=== PATIENT | female | born 1970 | race Caucasian/White ===

== ENCOUNTER → 2020-08-25 | Outpatient (CLI) | payer OTHER ==
[~2020-08-25] MED LIST: CITA40TA12 PO; DEXT10TA23 PO; HYDR-2145 PO; NIFE20CA PO
== END ==
LOC: LAB 09:58
PROVIDERS: ATTEND Nurse Anesthetist, Certified Registered
DX: Z01.812 Encounter for preprocedural laboratory examination (principal); Z13.9 Encounter for screening, unspecified; Z20.822 Contact with and (suspected) exposure to COVID-19
CPT/HCPCS: U0003; U0005

== ENCOUNTER → 2020-08-29 | Day surgery (SDC) | payer OTHER ==
[~2020-08-29] MED LIST changes: +IPRATRPIUM/ALBUTEROL 0.5/2.5MG 3 ML NEBU. NEB PRN; +IV RINGERS SOLUTION,LACTATED 1,000 ML IV SCH; +LIDOCAINE 2% PF 5 ML VIAL. ONE; +MIDAZOLAM HCL PF 2 MG/2 ML VIAL. IV ONE; +PROPOFOL 10,000 MCG/ML (20ML) VIAL IV ONE
[2020-08-29 08:51] VITALS: BP 106/72
== END | disposition home or self-care (01) ==
LOC: SURG 07:30
PROVIDERS: ATTEND Emergency Medicine
DX: Z12.11 Encounter for screening for malignant neoplasm of colon (principal); K57.30 Diverticulosis of large intestine without perforation or abscess without bleeding; K63.89 Other specified diseases of intestine; Z88.8 Allergy status to other drugs, medicaments and biological substances; Z79.899 Other long term (current) drug therapy
CPT/HCPCS: 45378; J2001; J2704; J7120

== ENCOUNTER 2021-03-26 09:12 | Emergency (ER) | payer OTHER ==
[~2021-03-26] VITALS: Ht 157.5 cm; Wt 66.0 kg
[~2021-03-26 09:12] MED LIST changes: -IPRATRPIUM/ALBUTEROL 0.5/2.5MG 3 ML NEBU. NEB PRN; -IV RINGERS SOLUTION,LACTATED 1,000 ML IV SCH; -LIDOCAINE 2% PF 5 ML VIAL. ONE; -MIDAZOLAM HCL PF 2 MG/2 ML VIAL. IV ONE; -PROPOFOL 10,000 MCG/ML (20ML) VIAL IV ONE
[2021-03-26 09:15] VITALS: BP 122/84
--- NOTE | 2021-03-26 10:15 | PHYS DOC ---
Past History Additional Past Medical Histor: seasonal allergies Past Surgical History: General Adult EDM: Chief Complaint: FOREIGNBODY EAR HPI: HPI: Patient is a 51-year-old female coming in for concern for foreign body in her left ear. Patient states she was cleaning ears with a Q-tip when she put the Q- tip in and then felt a scratch, which remove the Q-tip there was no cotton at the end. Patient is unsure whether there was cotton on the end of the Q-tip initially, states she did not look at it. No other complaints. Review of Systems: Review of Systems: All other systems within normal limits except for as noted in the HPI Allergies: Allergies: Allergies Coded Allergies Type Severity Reaction Last Updated Verified lisinopril Allergy Unknown swelling 08/29/20 Yes Physical Exam: PE: Constitutional: Well developed, well nourished, no acute distress, non-toxic ap pearance. [] HENT: Normocephalic, atraumatic, bilateral external ears normal, nose normal. Bilateral TMs and ear canals normal, no foreign body on exam [] Eyes: PERRLA, conjunctiva normal, no discharge. [] Neck: No rigidity, supple, no stridor. [] Cardiovascular: Regular rate and rhythm, brisk cap refill [] Lungs & Thorax: Non labored symmetric respirations, no tachypnea or respiratory distress [] Abdomen: Soft, nondistended. Skin: Warm, dry, no erythema, no rash. [] Back: Unremarkable Extremities: No deformities, range of motion grossly intact, no lower extremity edema [] Neurologic: Alert and oriented X 3, no focal deficits noted. [] Psychologic: Affect normal, judgement normal, mood normal. [] Current Patient Data: Vital Signs: Vital Signs Date Time Temp Pulse Resp B/P (MAP) Pulse Ox O2 Delivery O2 Flow Rate FiO2 03/26/21 09:15 97.7 66 16 122/84 (97) 100 EKG: EKG: [] Radiology/Procedures: Radiology/Procedures: [] Heart Score: C/O Chest Pain: No Risk Factors: Risk Factors: DM, Current or recent (<one month) smoker, HTN, HLP, family history of CAD, obesity. Risk Scores: Score 0 - 3: 2.5% MACE over next 6 weeks - Discharge Home Score 4 - 6: 20.3% MACE over next 6 weeks - Admit for Clinical Observation Score 7 - 10: 72.7% MACE over next 6 weeks - Early Invasive Strategies Course & Med Decision Making: Course & Med Decision Making Pertinent Labs and Imaging studies reviewed. (See chart for details) [] [place] Disclaimer: Dragluan Disclaimer: This electronic medical record was generated, in whole or in part, using a voice recognition dictation system. Departure Departure: Impression: Primary Impression: Feared condition not demonstrated Disposition: 07 LEFT AWOL/ELOPED Condition: STABLE Referrals: LEBRON WOOD DO (PCP) Patient Instructions: Medical Screening Exam ENA ALVARENGA MD Mar 26, 2021 10:15
== END 2021-03-26 10:10 | disposition left against medical advice (07) ==
LOC: ER 09:12
DX: Z71.1 Person with feared health complaint in whom no diagnosis is made (principal); Z88.8 Allergy status to other drugs, medicaments and biological substances
CPT/HCPCS: 99281

== ENCOUNTER 2021-06-23 18:33 | Emergency (ER) | payer OTHER ==
[~2021-06-23] VITALS: Ht 157.5 cm; Wt 66.0 kg
--- NOTE | 2021-06-23 19:07 | RAD ---
EXAM: Chest, single view. HISTORY: Chest pain. COMPARISON: None. FINDINGS: A frontal view of the chest is obtained. There is no infiltrate, pleural effusion or pneumo thorax. The heart is normal in size. IMPRESSION: No acute pulmonary finding. Electronically signed by: Hazel Wei MD (06/23/2021 7:04 PM) [facility]
[2021-06-23 19:13] LABS: CALCIUM 9.1 mg/dL (8.5-10.1); CREATININE 0.8 mg/dL (0.6-1.0); GFR 91.1; POTASSIUM 3.4 mmol/L (3.5-5.1)
[2021-06-23 19:15] LABS: BASO % 1 % (0-3); EOS # 0.2 x10^3/uL (0.0-0.7); EOS % 5 % (0-3); HEMATOCRIT 42.5 % (36.0-47.0); HEMOGLOBIN 13.7 g/dL (12.0-15.5); LYMPH # 1.2 x10^3/uL (1.0-4.8); LYMPH % 28 % (24-48); MEAN CORPUSCULAR HEMOGLOBIN 28 pg (25-35); MEAN CORPUSCULAR HGB CONC 32 g/dL (31-37); MEAN CORPUSCULAR VOLUME 86 fL (79-100); MONO # 0.5 x10^3/uL (0.0-1.1); MONO % 11 % (0-9); NEUT # 2.3 x10^3uL (1.8-7.7); NEUT % 55 % (31-73); PLATELET COUNT 328 x10^3/uL (140-400); RED BLOOD COUNT 4.97 x10^6/uL (3.50-5.40); RED CELL DISTRIBUTION WIDTH 13.8 % (11.5-14.5); WHITE BLOOD COUNT 4.2 x10^3/uL (4.0-11.0)
[2021-06-23 19:19] LABS: ALBUMIN 4.1 g/dL (3.4-5.0); ALBUMIN/GLOBULIN RATIO 1.2 (1.0-1.7); TOTAL BILIRUBIN 0.4 mg/dL (0.2-1.0); TOTAL PROTEIN 7.5 g/dL (6.4-8.2)
--- NOTE | 2021-06-23 19:19 | PHYS DOC ---
Past History Additional Past Medical Histor: seasonal allergies (IRVIN MEDINA APRN) Past Surgical History: (IRVIN MEDINA APRN) Alcohol Use: None (IRVIN MEDINA APRN) General Adult EDM: Chief Complaint: CHEST PAIN HPI: HPI: Patient is a 51-year-old female who presents to the emergency department for midsternal chest pain that is intermittent for the last month. Patient reports that it did not resolve today and she woke up with the pain. The chest pain is worse with movement. She states it is worse with movement. She has had a nonproductive cough. She rates her pain 7 out of 10 describes it as a pressure pain. No treatment prior to arrival. Patient denies any shortness of breath, nausea, vomiting, abdominal pain. She has a history of hypertension, depression and high cholesterol. She reports that she has had increased stress and anxiety. She does not smoke or have any immediate family history of sudden cardiac or NV. (IRVIN MEDINA APRN) Review of Systems: Review of Systems: Constitutional: negative unless reported in HPI Eyes: negative unless reported in HPI HENT: negative unless reported in HPI Respiratory: negative unless reported in HPI Cardiovascular: negative unless reported in HPI GI: negative unless reported in HPI : negative unless reported in HPI Musculoskeletal: negative unless reported in HPI Integument: negative unless reported in HPI Neurologic: negative unless reported in HPI Endocrine: negative unless reported in HPI Lymphatic: negative unless reported in HPI Psychiatric: negative unless reported in HPI (IRVIN MEDINA APRN) Allergies: Allergies: Allergies Coded Allergies Type Severity Reaction Last Updated Verified lisinopril Allergy Unknown swelling 08/29/20 Yes (IRVIN MEDINA APRN) Physical Exam: PE: Constitutional: Well developed, well nourished, no acute distress, non-toxic appearance. [] HENT: Normocephalic, atraumatic, bilateral external ears normal, oropharynx moist, no oral exudates, nose normal. [] Eyes: PERRLA, EOMI, conjunctiva normal, no discharge. [] Neck: Normal range of motion, no tenderness, supple, no stridor. [] Cardiovascular:Heart rate regular rhythm, no murmur [] Lungs & Thorax: Bilateral breath sounds clear to auscultation [] Abdomen: Bowel sounds normal, soft, no tenderness, no masses, no pulsatile masses. [] Skin: Warm, dry, no erythema, no rash. [] Back: No tenderness, no CVA tenderness. [] Extremities: No tenderness, no cyanosis, no clubbing, ROM intact, no edema. [] Neurologic: Alert and oriented X 3, normal motor function, normal sensory function, no focal deficits noted. [] Psychologic: Affect normal, judgement normal, mood normal. [] (IRVIN MEDINA APRN) Current Patient Data: Labs: Laboratory Tests Test 06/23/21 18:43 White Blood Count 4.2 x10^3/uL Red Blood Count 4.97 x10^6/uL Hemoglobin 13.7 g/dL Hematocrit 42.5 % Mean Corpuscular Volume 86 fL Mean Corpuscular Hemoglobin 28 pg Mean Corpuscular Hemoglobin Concent 32 g/dL Red Cell Distribution Width 13.8 % Platelet Count 328 x10^3/uL Neutrophils (%) (Auto) 55 % Lymphocytes (%) (Auto) 28 % Monocytes (%) (Auto) 11 % Eosinophils (%) (Auto) 5 % Basophils (%) (Auto) 1 % Neutrophils # (Auto) 2.3 x10^3uL Lymphocytes # (Auto) 1.2 x10^3/uL Monocytes # (Auto) 0.5 x10^3/uL Eosinophils # (Auto) 0.2 x10^3/uL Basophils # (Auto) 0.0 x10^3/uL Sodium Level 142 mmol/L Potassium Level 3.4 mmol/L Chloride Level 102 mmol/L Carbon Dioxide Level 32 mmol/L Anion Gap 8 Blood Urea Nitrogen 14 mg/dL Creatinine 0.8 mg/dL Estimated GFR (Cockcroft-Gault) 91.1 BUN/Creatinine Ratio 18 Glucose Level 86 mg/dL Calcium Level 9.1 mg/dL Total Bilirubin 0.4 mg/dL Aspartate Amino Transf (AST/SGOT) 21 U/L Alanine Aminotransferase (ALT/SGPT) 25 U/L Alkaline Phosphatase 72 U/L Troponin I High Sensitivity < 4 ng/L Total Protein 7.5 g/dL Albumin 4.1 g/dL Albumin/Globulin Ratio 1.2 Vital Signs: Vital Signs Date Time Temp Pulse Resp B/P (MAP) Pulse Ox O2 Delivery O2 Flow Rate FiO2 06/23/21 18:50 98.5 70 18 146/98 (114) 97 Room Air (IRVIN MEDINA APRN) EKG: EKG: EKG performed by ER staff at 1846 shows sinus rhythm, rate of 67, QTc 453, no STEMI read by Dr. Menezes [] (IRVIN MEDINA APRN) Radiology/Procedures: Radiology/Procedures: []REASON: Chest pain PROCEDURE: PORTABLE CHEST 1V EXAM: Chest, single view. HISTORY: Chest pain. COMPARISON: None. FINDINGS: A frontal view of the chest is obtained. There is no infiltrate, pleural effusion or pneumothorax. The heart is normal in size. IMPRESSION: No acute pulmonary finding. Electronically signed by: Hazel Baeza MD (06/23/2021 7:04 PM) [facility] DICTATED AND SIGNED BY: HAZEL BAEZA MD DATE: 06/23/211903 CC: EMERGENCY,DEPARTMENT; IRVIN MEDINA APRN; LEBRON WOOD DO ~MTH0 0 (IRVIN MEDINA APRN) Heart Score: C/O Chest Pain: Yes HEART Score for Chest Pain: HEART Score for Chest Pain Response (Comments) Value History Slighlty/Non-Suspicious 0 ECG Normal 0 Age >45 - < 65 1 Risk Factors 1 or 2 Risk Factors 1 Troponin < Normal Limit 0 Total 2 Risk Factors: Risk Factors: DM, Current or recent (<one month) smoker, HTN, HLP, family history of CAD, obesity. Risk Scores: Score 0 - 3: 2.5% MACE over next 6 weeks - Discharge Home Score 4 - 6: 20.3% MACE over next 6 weeks - Admit for Clinical Observation Score 7 - 10: 72.7% MACE over next 6 weeks - Early Invasive Strategies (IRVIN MEDINA APRN) Course & Med Decision Making: Course & Med Decision Making Pertinent Labs and Imaging studies reviewed. (See chart for details) [] Patient presents to the emergency department for chest pain that is intermittent for 1 month. Patient was that she woke up with the pain today. The pain is worse with movement. She is also had a nonproductive cough. She has a history of hypertension, high cholesterol. She does not smoke. No family history of sudden cardiac or NV. Patient's blood work was unremarkable. Her potassium was 3.4 this was placed in the emergency department. Negative troponin. Chest x-ray showed no acute findings. Patient's pain was treated in the emergency department and she was given aspirin. Patient's heart score is 2. Patient will have a 3-hour troponin drawn. Repeat troponin is not elevated. Following treatment in the emergency department with morphine, patient's pain has resolved. Pain is likely pleuritic/musculoskeletal in nature as it is worse with movement and patient has a cough. Discussed case with supervising physician. Patient was advised to follow-up with her primary care provider and she was given a cardiology referral. She is advised to take a baby aspirin daily. I discussed with patient all findings and diagnostic testing as well as the need to follow-up with PCP for further evaluation and treatment or return to the ER if any new or worsening symptoms. Strict return precautions were also discussed at length. Patient voiced understanding and agreement with the plan. Patient is hemodynamically stable at the time of disposition. (IRVIN MEDINA APRN) Dragon Disclaimer: Dragon Disclaimer: This electronic medical record was generated, in whole or in part, using a voice recognition dictation system. (IRVIN MEDINA APRN) Departure Departure: Impression: Primary Impression: Atypical chest pain Disposition: HOME / SELF CARE / HOMELESS Condition: GOOD Referrals: LEBRON WOOD DO (PCP) NING MAYEN MD Patient Instructions: Chest Pain (Nonspecific) Additional Instructions: You were seen in the emergency department today for chest pain. It does not appear at this time that you are experiencing an acute coronary syndrome. You can take Tylenol and/or ibuprofen for pain at home. Please start taking a baby aspirin daily. You will need to follow-up with your primary care provider on Friday regarding your ER visit and will need to see a journeyman operator assistant as you may need to have a stress test. Engineering Consultant information was attached to this hazel soria paperwork. If you return home and your pain begins again or you experience shortness of breath, dizziness, intractable nausea or vomiting, palpitations or any new symptoms you need to return to the emergency department immediately for reevaluation. EMERGENCY DEPARTMENT GENERAL DISCHARGE INSTRUCTIONS Thank you for coming to [facility] (ED) today and trusting us with you care. We trust that you had a positivie experience in our Emergency Department. If you wish to speak to the department management, you may call the director at [phone]. YOUR FOLLOW UP INSTRUCTIONS ARE FOLLOWS: 1. Do you have a private Doctor? If you do not have a private doctor, please ask for a resource list of physicians or clinics that may be able to assist you with follow up care. 2. The Emergency Physician has interpreted your x-rays. The X-Ray specialist will also review them. If there is a change in the findings, you will be notified in 48 hours when at all possible. 3. A lab test or culture has been done, your results will be reviewed and you will be notified if you need a change in treatment. ADDITIONAL INSTRUCTIONS AND INFORMATION: 1. Your care today has been supervised by a physician who is specially trained in emergency care. Many problems require more than one evaluation for a complete diagnosis and treatment. We recommend that you schedule your follow up appointment as recommended to ensure complete treatment of you illness or injury. If you are unable to obtain follow up care and continue to have a problem, or if your condition worsens, we recommend that you return to the ED. 2. We are not able to safely determine your condition over the phone nor are we able to give sound medical advice over the phone. For these safety reasons, if you call for medical advice we will ask you to come to the ED for further evaluation. 3. If you have any questions regarding these discharge instructions please call the ED at [phone]. SAFETY INFORMATION: In the interest of safety, wellness, and injury prevention; we encourage you to wear your sealbelt, if you smoke; quite smoking, and we encourage family to use a protective helmet for bicycling and other sporting events that present an increased risk for head injury. IF YOUR SYMPTOMS WORSEN OR NEW SYMPTOMS DEVELOP, OR YOU HAVE CONCERNS ABOUT YOUR CONDITION; OR IF YOUR CONDITION WORSENS WHILE YOU ARE WAITING FOR YOUR FOLLOW UP APPOINTMENT; EITHER CONTACT YOUR PRIMARY CARE DOCTOR, THE PHYSICIAN WHOSE NAME AND NUMBER YOU WERE GIVEN, OR RETURN TO THE ED IMMEDIATELY. Dragon Disclaimer This chart was dictated in whole or in part using Voice Recognition software in a busy, high-work load, and often noisy Emergency Department environment. It may contain unintended and wholly unrecognized errors or omissions. (GENE MENEZES MD) Attending Signature Attending Signature I have participated in the care of this patient and I have reviewed and agree with all pertinent clinical information above including history, exam, and recommendations. (GENE MENEZES MD) IRVIN MEDINA APRN Jun 23, 2021 19:19 GENE MENEZES MD Jun 24, 2021 22:00
[2021-06-23] MEDS ORDERED: ASPIRIN CHEWABLE 81 MG TABLET. PO ONE (20:00)
[2021-06-23] MEDS ORDERED: MORPHINE SULFATE 2 MG/ML DISP.SYRIN. IV ONE (20:00)
[2021-06-23] MEDS ORDERED: POTASSIUM CHLORIDE 10 MEQ TABLET.ER. PO ONE (20:00)
[2021-06-23] MEDS ORDERED: IV NORMAL SALINE 1,000ML 1,000 ML IV ONE (20:30)
--- NOTE | 2021-06-23 21:21 | EKG ---
[address] [address] Test Date: 2021-06-23 Test Time: 18:46:00 Pat Name: RYAN RAM Department: Room: Gender: F Anthropology Instructor: DARRELL : 1970 Requested By: IRVIN MEDINA Order Number: [id number] Reading MD: Warren Gresham Measurements Intervals [place] Rate: 67 P: 54 [place]: 114 QRS: 15 QRSD: 84 T: 5 QT: 426 QTc: 453 Interpretive Statements SINUS RHYTHM NORMAL ECG RI6.01 No previous ECG available for comparison Electronically Signed On 06-24-2021 13:50:16 SHIP WASHER by Warren Gresham
--- NOTE | 2021-06-23 21:21 | EKG ---
[address] [address] Test Date: 2021-06-23 Test Time: 20:40:37 Pat Name: RYAN RAM Department: Room: Gender: F Icing Mixer: DARRELL : 1970 Requested By: IRVIN MEDINA Order Number: [id number] Reading MD: Warren Gresham Measurements Intervals [place] Rate: 54 P: 68 RI: 116 QRS: 13 QRSD: 80 T: 5 QT: 466 QTc: 444 Interpretive Statements SINUS RHYTHM Electronically Signed On 06-24-2021 13:49:15 ENGLISH DIVISION CHAIR by Warren Gresham
[2021-06-23 22:07] VITALS: BP 124/84
[2021-06-23] MEDS ORDERED: KETOROLAC 15 MG/ML VIAL. IVP ONE (22:15)
== END 2021-06-23 22:15 | disposition home or self-care (01) ==
LOC: ER 18:33
DX: R07.2 Precordial pain (principal); R05.9 Cough, unspecified; I10 Essential (primary) hypertension; E78.00 Pure hypercholesterolemia, unspecified; Z88.8 Allergy status to other drugs, medicaments and biological substances
CPT/HCPCS: 36415; 71045; 80053; 84484; 85025; 93005; 96361; 96374; 99285; J2270; J7030